=== PATIENT | male | born 1945 | race Caucasian/White ===

== ENCOUNTER 2019-03-02 05:14 | Day surgery (SDC) ==
--- NOTE | 2019-02-23 17:34 | EKG Report ---
Test Performed on : 02/23/2019 5:22:52 PM Test Reason : PAT Blood Pressure : / mmHG Vent. Rate : 077 BPM Atrial Rate : 258 BPM P-R Int : 000 ms QRS Dur : 096 ms QT Int : 370 ms P-R-T Axes : 000 076 -08 degrees QTc Int : 418 ms Atrial fibrillation. Cannot rule out Inferior infarct , age undetermined Abnormal ECG No previous ECGs available Confirmed by George CONTRERAS, Rik ([id number]) on 02/24/2019 8:36:35 AM
[2019-02-23 17:37] LABS: URINE SOURCE CLEAN CATCH
[2019-02-23 17:53] LABS: BASO# 0.03 X1000 (0.0-0.2); BASO% 0.4 % (0.0-0.8); EOS# 0.15 X1000 (0.0-0.7); HEMATOCRIT 42.5 % (42.0-52.0); HEMOGLOBIN 13.9 g/dL (14.0-18.0); IMM GRAN# 0.03 X1000 (0.0-0.04); IMM GRAN% 0.4 % (0.0-0.5); LYMPH# 1.49 X1000 (1.2-3.4); LYMPH% 20.3 % (20.5-51.1); MCHC 32.7 g/dL (33-37); MCV 97.9 FL (81-99); MONO% 8.2 % (1.7-9.3); MPV 10.4 FL (7.4-10.4); NEUT# 5.05 X1000 (1.4-6.5); NEUT% 68.7 % (42.2-75.2); PLT 206 X1000 (130-400); RBC 4.34 XMIL (4.7-6.1); RDW 13.3 % (11.5-14.5); WBC 7.35 X1000 (4.8-10.8)
[2019-02-23 17:59] LABS: INR 1.98; PTT 36.1 Seconds (22.3-41.8)
[2019-02-23 18:02] LABS: HEMOGLOBIN A1C 6.7 % (4.8-6.0)
[2019-02-23 18:04] LABS: BILIRUBIN URINE NEGATIVE (NEGATIVE); BLOOD URINE NEGATIVE (NEGATIVE); COLOR YELLOW; GLUCOSE URINE NEGATIVE (NEGATIVE); KETONE URINE NEGATIVE (NEGATIVE); LEUKOCYTES URINE NEGATIVE (NEGATIVE); NITRITE URINE NEGATIVE (NEGATIVE); PH URINE 5.5; PROTEIN URINE NEGATIVE (NEGATIVE); SP GRAVITY URINE 1.014; TURBIDITY URINE CLEAR (CLEAR); UROBILINOGEN URINE NORMAL (NORMAL)
[2019-02-23 18:05] LABS: UR EPITHELIAL CELLS <10 /HPF (<10); URINE BACTERIA NEGATIVE /HPF; URINE RBC <10 /HPF (<10); URINE WBC <10 /HPF (<10)
[2019-02-23 18:07] LABS: CALCIUM 9.2 mg/dL (8.8-10.2); CREATININE 1.2 mg/dL (0.7-1.2); POTASSIUM 4.2 mmol/L (3.5-5.1)
[2019-03-02] MEDS ORDERED: PEPCID ONE (05:36)
[2019-03-02] MEDS ORDERED: LYRICA ONE (05:36)
[2019-03-02] MEDS ORDERED: CELEBREX ONE (05:36)
[2019-03-02] MEDS ORDERED: REGLAN ONE (05:36)
[2019-03-02] MEDS ORDERED: COLACE ONE (05:36)
[2019-03-02] MEDS ORDERED: KEFZOL 1 GM/D5W 2 GM/100 ML IVPB ONE (05:37)
[2019-03-02] MEDS ORDERED: LR 1,000 ML ONE (05:37)
[2019-03-02] MEDS ORDERED: DURAMORPH ONE (06:23)
[2019-03-02] MEDS ORDERED: MARCAINE 0.25% PF ONE (06:24)
[2019-03-02] MEDS ORDERED: CYKLOKAPRON 1,000 MG/NS 2,000 MG/200 ML IVPB ONE (06:24)
[2019-03-02] MEDS ORDERED: VANCOMYCIN ONE (06:24)
[2019-03-02] MEDS ORDERED: TORADOL ONE (06:24)
[2019-03-02] MEDS ORDERED: SODIUM CHLORIDE 0.9% ONE (06:24)
[2019-03-02] MEDS ORDERED: EXPAREL 1.3% ONE (06:25)
[2019-03-02] MEDS ORDERED: NEOSPORIN G.U. IRRIGANT ONE (06:25)
[2019-03-02] MEDS ORDERED: DIPRIVAN 1% ONE (06:26)
[2019-03-02] MEDS ORDERED: FENTANYL ONE (06:26)
[2019-03-02] MEDS ORDERED: ZOFRAN ONE (06:39)
[2019-03-02] MEDS ORDERED: DECADRON ONE (07:12)
[2019-03-02] MEDS ORDERED: OFIRMEV 1000 MG/ISOTONIC SOLN 1,000 MG/100 ML BOTTLE ONE (07:14)
[2019-03-02] MEDS ORDERED: EPHEDRINE ONE (07:16)
[2019-03-02 07:50] LABS: URINE SOURCE CATH
[2019-03-02 07:58] LABS: BILIRUBIN URINE NEGATIVE (NEGATIVE); BLOOD URINE NEGATIVE (NEGATIVE); COLOR YELLOW; GLUCOSE URINE NEGATIVE (NEGATIVE); KETONE URINE NEGATIVE (NEGATIVE); LEUKOCYTES URINE NEGATIVE (NEGATIVE); NITRITE URINE NEGATIVE (NEGATIVE); PH URINE 5.5; PROTEIN URINE TRACE mg/dL (NEGATIVE); SP GRAVITY URINE 1.018; TURBIDITY URINE CLEAR (CLEAR); UROBILINOGEN URINE NORMAL (NORMAL)
[2019-03-02 07:59] LABS: UR EPITHELIAL CELLS <10 /HPF (<10); URINE BACTERIA NEGATIVE /HPF; URINE RBC <10 /HPF (<10); URINE WBC <10 /HPF (<10)
[2019-03-02] MEDS ORDERED: MORPHINE ONE (08:50)
[2019-03-02] MEDS ORDERED: NS 1,000 ML ONE (09:37)
--- NOTE | 2019-03-02 09:53 | Diag Imaging Result Doc PS360 ---
EXAM: KNEE 1-2 VIEWS-LEFT 03/02/2019 HISTORY: post op TECHNIQUE: Left knee two views COMMENT: There is a total knee arthroplasty. There is extensive calcification in the superficial femoral and popliteal arteries. There is no evidence of acute fracture or other bony abnormality. IMPRESSION: Postsurgical changes. Atherosclerosis. Electronically signed by Pawel Ochoa 03/02/2019 9:51 AM
[2019-03-02] MEDS ORDERED: ZOFRAN PO PRN (10:15)
[2019-03-02] MEDS ORDERED: MORPHINE IV PRN ×3 (10:15)
[2019-03-02] MEDS: NS 1,000 ML IV SCH ×2 (11:02→23:28)
[2019-03-02] MEDS ORDERED: BLISTEX MEDICATED BERRY LIP BALM TOP PRN (11:07)
[2019-03-02] MEDS ORDERED: ZYLOPRIM PO PRN (12:34)
[2019-03-02] MEDS: KEFZOL 2 GM/D5W 2 GM/50 ML IVPB IV SCH ×2 (15:15→23:27)
--- NOTE | 2019-03-02 15:34 | OPERATIVE NOTE ---
PROCEDURE DATE: 03/02/2019 PREOPERATIVE DIAGNOSIS: Degenerative arthritis, left knee. POSTOPERATIVE DIAGNOSIS: Degenerative arthritis, left knee. PROCEDURE: Left total knee arthroplasty DePuy Attune size 7 posterior stabilized femur, size 9 tibial tray, a 6 mm rotating platform tibial insert and a 41 mm medialized anatomic patella. SURGEON: Dr. Schaefer. FIELD SERVICE SPECIALIST: MARTA Fung, who is necessary for proper positioning, retraction and manipulation of the extremity during the case. SECOND TRAFFIC I MANAGER: Mendez Tesfaye RN. ANESTHESIA: General anesthetic. IV FLUIDS: 1300 mL lactated Ringer's. ESTIMATED BLOOD LOSS: 50 mL. TOURNIQUET TIME: 85 minutes at 300 mmHg. COMPLICATIONS: None. INDICATION: The patient is a pleasant 73-year-old male, who has had a chronic history of worsening pain and discomfort of his left knee. Has continued pain and discomfort despite appropriate nonoperative treatment. X-rays reveal degenerative arthritis and recommendation to proceed with left total knee arthroplasty as offered. Risks of surgery were explained, including the risks of anesthesia, , bleeding, infection, failure to relieve pain, postoperative stiffness, nerve injury, blood clots and other imponderables. All questions answered. Patient's family wished to proceed with surgery. DETAILS OF OPERATION: The patient was taken to the operative room and placed supine on operating table. Once adequate anesthesia was obtained, patient's left lower extremity was subsequently prepped and draped in the usual sterile fashion. Esmarch was used to exsanguinate the left lower extremity. The tourniquet was inflated at 300 mmHg. A standard anterior incision was made with skin knife. Medial and lateral skin envelopes developed. Standard medial parapatellar arthrotomy was then performed. Patella fat pad was excised. Attention turned to the patella that was everted and resected in standard fashion. A protective disk was then placed. Superior retractors were then placed. Attention then turned to the distal femur where approximately 1 cm anterior to the PCL insertion, starting reamer was passed. Intramedullary guide with a distal femoral cutting block was pinned in position. Distal femoral cut was then performed in standard fashion with 1-2 mm of the articular surface of the acromion. There appeared to be good resection confirmed through the anterior portal. A sizing block was placed and measured size 7. Corresponding pins were placed. A size 7 cutting block was placed in position. Anterior, posterior, and chamfer cuts were then made. Attention was then turned to the proximal tibia where using the extramedullary guide, the proximal tibia cutting block was pinned in position. Proximal tibia was then resected. The medial and lateral menisci were excised. A curved osteotome was used to remove the posterior osteophytes off the distal femur. Spacer block was placed and good soft tissue balancing. Attention turned back to the proximal tibia where a size 9 tibial tray appeared to be the correct size. This was pinned in position followed by a central reamer and a fin punch. A box cutting guide was then placed in the distal femur. A box cut was performed. A trial femoral component was placed and 2 lug holes were drilled. The patella size 41 appeared to be the correct size for the patella. Then, drill holes were placed. The trial patella component was then placed. The knee was then carried through range of motion. Good soft tissue balance, good range of motion and good patellofemoral tracking were noted. After this was then performed, trial components were then removed. Copious irrigation performed with antibiotic pulsatile lavage. Vancomycin was mixed with cement on the back table. Sequential cementing was then performed first with the tibial tray and excess cement was removed with a Fayette followed by the femoral component. Excess cement was removed with a Fayette followed by trial tibial insert in full extension. Axial loading was maintained while cement cured. Patella component was cemented in standard fashion. Patella clamp was placed. While cement was curing, Exparel was placed in the deep soft tissue, as well as the subcutaneous tissue. After cement had cured, peripheral cement was removed with small osteotome. A size 6 tibial tray appeared to be the correct size. This trial insert was removed. Exparel was placed in deep posterior capsule. The wound was copiously irrigated. A size 6 mm rotating platform tibial insert was placed. The knee was then carried through range of motion. Good range of motion, good soft tissue balance and good patellofemoral tracking were noted. A 1/8 Hemovac drain was placed, but was not sewn. The wound was copiously irrigated with pulsatile lavage. Number 1 Vicryl was then used to repair the arthrotomy followed by 2-0 Vicryl to repair the subcutaneous tissue, and skin sonya. Adaptic, sterile 4 x 4s, Webril, cryounit, Sukhwinder wrap applied to the left lower extremity. Patient tolerated the procedure well. No complications. Transferred to the recovery room in stable condition. cc: Fidel Schaefer MD
[2019-03-02] MEDS: GLUCOPHAGE PO SCH (17:49)
[2019-03-02] MEDS: OXY IR PO PRN ×2 (17:49→20:45)
[2019-03-02] MEDS: PEPCID PO SCH (20:37)
[2019-03-02] MEDS: PERIDEX MT SCH (20:37)
[2019-03-02] MEDS: FERROUS SULFATE PO SCH (20:38)
[2019-03-02] MEDS: TENORMIN PO SCH (20:38)
[2019-03-03] MEDS: OXY IR PO PRN ×2 (03:35→08:24)
[2019-03-03 06:31] LABS: HEMATOCRIT 34.1 % (42.0-52.0); HEMOGLOBIN 11.1 g/dL (14.0-18.0)
[2019-03-03 06:54] LABS: AGAP 10; BUN 20 mg/dL (8-22); CALCIUM 8.6 mg/dL (8.8-10.2); CHLORIDE 102 mmol/L (98-107); COSMO 282; CREATININE 1.1 mg/dL (0.7-1.2); ESTIMATED GFR > 60; GLUCOSE 129 mg/dL (70-104); POTASSIUM 4.3 mmol/L (3.5-5.1); SODIUM 139 mmol/L (136-145); TCO2 27 mmol/L (25-35)
[2019-03-03] MEDS ORDERED: PRILOSEC PO SCH (07:00)
[2019-03-03] MEDS ORDERED: SPIRIVA INH PRN (07:30)
[2019-03-03 07:51] VITALS: BP 133/72
[2019-03-03] MEDS: TENORMIN PO SCH (08:24)
[2019-03-03] MEDS: GLUCOPHAGE PO SCH (08:24)
[2019-03-03] MEDS: PEPCID PO SCH (08:25)
[2019-03-03] MEDS: PERIDEX MT SCH (08:26)
[2019-03-03] MEDS: FERROUS SULFATE PO SCH (08:26)
[2019-03-03] MEDS ORDERED: FOLIC ACID PO SCH (09:00)
[2019-03-03] MEDS ORDERED: LIPITOR PO SCH (09:00)
[2019-03-03] MEDS ORDERED: LUTEIN 25 MG PO SCH (09:00)
[2019-03-03] MEDS ORDERED: AMARYL PO SCH (09:00)
[2019-03-03] MEDS ORDERED: COZAAR PO SCH (09:00)
[2019-03-03] MEDS ORDERED: XARELTO PO SCH (09:00)
[2019-03-03] MEDS ORDERED: ASPIRIN EC PO SCH (09:00)
[2019-03-03] MEDS ORDERED: RANITIDINE HCL 300 MG PO SCH (09:00)
--- NOTE | 2019-03-03 12:11 | ORTHOPAEDICS PROGRESS NOTE ---
DATE: 03/03/2019 SUBJECTIVE: The patient is a pleasant 73-year-old male, who is 1 day status post left total knee arthroplasty. Appears currently resting comfortably. OBJECTIVE: On physical exam, patient's left lower extremity wound looks good. There are no signs or symptoms of infection. His calf is soft. He has active dorsiflexion plantar flexion. Stable for straight leg raise. He was able to ambulate with physical therapy yesterday. LABS: His labs are pending. IMPRESSION: Postoperative day #1 status post left total knee arthroplasty. PLAN: At this point, we will discharge home after physical therapy. We will arrange for home physical therapy. Patient will follow up on 03/14/2019. cc: Fidel Schaefer MD
== END 2019-03-03 10:35 | disposition home or self-care (01) ==
LOC: 4N 05:14 → OPS 05:14 → OR 05:14 → OPS 03-03 10:35
PROVIDERS: ATTEND Orthopaedic Surgery Adult Reconstructive Orthopaedic Surgery